=== PATIENT | female | born 1990 | race Two or more races ===

== ENCOUNTER 2024-07-29 10:08 | Emergency (ER) | payer OTHER ==
[~2024-07-29] VITALS: Ht 152.4 cm; Wt 52.2 kg
[2024-07-29 11:17] VITALS: BP 125/82; O2SAT 100
[2024-07-29] MEDS ORDERED: ORPHENADRINE CITRATE 30 MG/ML AMPUL IM STA (11:46)
[2024-07-29] MEDS ORDERED: ORPHENADRINE CITRATE 30 MG/ML AMPUL ONE (11:58)
== END 2024-07-29 13:47 | disposition home or self-care (01) ==
LOC: ER 10:10
DX: M25.572 Pain in left ankle and joints of left foot (principal); W01.0XXA Fall on same level from slipping, tripping and stumbling without subsequent striking against object, initial encounter; Y93.9 Activity, unspecified; Y92.89 Other specified places as the place of occurrence of the external cause; Z88.6 Allergy status to analgesic agent; M25.562 Pain in left knee